=== PATIENT | female | born 1995 | race Caucasian/White ===

== ENCOUNTER 2017-10-13 12:38 | Inpatient (IN) | payer MEDICAID ==
[2017-10-13] MEDS: LACTATED RINGER'S 1,000 ML IV ×3 (13:17→23:25)
[2017-10-13 13:21] LABS: ADD MAN DIFF? NO
[2017-10-13 13:23] LABS: ABNORMAL IP MESSAGE 1; BASOPHILS % 0.2 % (0.0-2.0); HEMATOCRIT 31.9 % (37.0-47.0); HEMOGLOBIN 10.7 g/dl (12.0-16.0); LYMPHOCYTES # 0.4 10^3/ul (0.8-2.9); LYMPHOCYTES % 4.4 % (15.0-51.0); MEAN CORPUSCULAR HEMOGLOBIN 30.1 pg (29.0-33.0); MEAN CORPUSCULAR HGB CONC 33.5 g/dl (32.0-37.0); MEAN CORPUSCULAR VOLUME 89.6 fl (82.0-101.0); MONOCYTE # 0.8 10^3/ul (0.3-0.9); MONOCYTES % 9.4 % (0.0-11.0); NEUTROPHIL # 7.3 10^3/ul (1.6-7.5); NUCLEATED RED BLOOD CELLS # 0.1 10^3/ul (0.0-0.0); NUCLEATED RED BLOOD CELLS% 0.7 /100WBC (0.0-0.0); PLATELET COUNT 205 10^3/UL (140-415); RED BLOOD COUNT 3.56 10^6/ul (4.20-5.40); RED CELL DISTRIBUTION WIDTH 13.6 % (11.5-14.5)
[2017-10-13 13:23] LABS: WHITE BLOOD COUNT 8.7 10^3/ul (4.8-10.8)
[2017-10-13 13:37] LABS: POSITIVE DIFF @See below
[2017-10-13 13:40] LABS: ALANINE AMINOTRANSFERASE 31 IU/L (13-69); ALBUMIN 3.2 g/dl (3.3-4.9); ALBUMIN/GLOBULIN RATIO 1.03; ALKALINE PHOSPHATASE 149 IU/L (42-121); ANION GAP 12 (8-16); ASPARTATE AMINO TRANSFERASE 24 IU/L (15-46); BILIRUBIN,INDIRECT 0.3 mg/dl (0-1.1); BILIRUBIN,TOTAL 0.3 mg/dl (0.2-1.3); BLOOD UREA NITROGEN 3 mg/dl (7-20); CALCIUM 8.1 mg/dl (8.4-10.2); CARBON DIOXIDE 18 mmol/L (21-31); CHLORIDE 109 mmol/L (97-110); CREATININE 0.57 mg/dl (0.44-1.00); GLUCOSE 84 mg/dl (70-220); POTASSIUM 3.5 mmol/L (3.5-5.1); SODIUM 135 mmol/L (135-144); TOTAL PROTEIN 6.3 g/dl (6.1-8.1)
[2017-10-13] MEDS: CEFAZOLIN 2 GM/50 ML (PMX) 50 ML IVPB (16:34)
[2017-10-13 17:54] LABS: ADD UMIC YES; UR ASCORBIC ACID NEGATIVE (NEGATIVE); UR BACTERIA FEW /HPF (NONE SEEN); UR BILIRUBIN (Dip) NEGATIVE (NEGATIVE); UR BLOOD (Dip) 1+ mg/dL (NEGATIVE); UR CLARITY SLIGHTLY CLOUDY (CLEAR); UR COLOR YELLOW (YELLOW); UR GLUCOSE (Dip) NEGATIVE (NEGATIVE); UR KETONES (Dip) 2+ mg/dL (NEGATIVE); UR LEUKOCYTE ESTERASE (Dip) 1+ Leu/ul (NEGATIVE); UR MUCUS FEW /HPF (NONE SEEN); UR NITRITE (Dip) NEGATIVE (NEGATIVE); UR RBC 2 /HPF (0-5); UR SPECIFIC GRAVITY (Dip) 1.021 (1.003-1.030); UR SQUAMOUS EPITHELIAL CELL FEW /HPF (FEW); UR TOTAL PROTEIN (Dip) NEGATIVE (NEGATIVE); UR UROBILINOGEN (Dip) 1+ mg/dL (NEGATIVE); UR WBC 3 /HPF (0-5)
[2017-10-13] MEDS: ACETAMINOPHEN 325 MG TAB PO (20:11)
[2017-10-13] MEDS: CEPASTAT LOZENGE MT (21:22)
[2017-10-14] MEDS: LACTATED RINGER'S 1,000 ML IV (07:42)
[2017-10-14] MEDS: ACETAMINOPHEN 325 MG TAB PO (12:30)
[2017-10-14] MEDS: CEPASTAT LOZENGE MT (12:30)
[2017-10-14] MEDS: SALINE 0.65% 45 ML NAS SPRAY NASAL (13:42)
[2017-10-14] MEDS ORDERED: AZITHROMYCIN 250 MG TAB PO (14:00)
[2017-10-14] MEDS ORDERED: OSELTAMIVIR 75 MG CAP PO (14:00)
== END 2017-10-14 14:15 | disposition home or self-care (01) | DRG 781 ==
LOC: OBT 12:38 → L-D 12:38 → OBT 16:00 → L-D 16:00
DX: O98.513 Other viral diseases complicating pregnancy, third trimester (principal); J00 Acute nasopharyngitis [common cold]; Z3A.31 31 weeks gestation of pregnancy
CPT/HCPCS: 36415; 76817; 76818; 80053; 81001; 85025; 96360

== ENCOUNTER 2017-11-14 07:57 | Outpatient (CLI) | payer MEDICAID | END 2017-11-14 11:00 | disposition home or self-care (01) | LOC: OBT 07:57 → L-D 07:57 → OBT 11:00 | DX: O62.9 Abnormality of forces of labor, unspecified (principal); O34.219 Maternal care for unspecified type scar from previous cesarean delivery; Z3A.36 36 weeks gestation of pregnancy | CPT/HCPCS: 76818 ==

== ENCOUNTER 2017-12-02 10:32 | Inpatient (IN) | payer MEDICAID ==
[~2017-12-02 10:32] MED LIST: ACETAMINOPHEN 1000MG/100ML IV 100 ML; CEFAZOLIN 1 GM INJ; DEXAMETHASONE 4 MG/ML 1 ML INJ; FAMOTIDINE 20 MG INJ; FENTAnyl 50 MCG/ML VIAL; LIDOCAINE 2% (SDV) 5 ML INJ; MIDAZOLAM 1 MG/ML 2 ML INJ; ONDANSETRON 4 MG INJ; PHENYLephrine (100 MCG/ML) 5ML SYG; PROPOFOL 20 ML; ROCURONIUM 50 MG INJ; SUCCINYLCHOLINE CHLORIDE 100 MG/5 ML SYG IV; SUGAMMADEX SODIUM 200 MG/2 ML VIAL IV; morphine SULFATE/PF (10 MG/10 ML) INJ
[2017-12-02] MEDS ORDERED: MISOPROSTOL 200 MCG TAB PR (11:00)
[2017-12-02] MEDS ORDERED: CARBOPROST 250 MCG INJ IM (11:00)
[2017-12-02] MEDS ORDERED: IBUPROFEN 600 MG TAB PO (11:00)
[2017-12-02] MEDS ORDERED: LIDOCAINE 1% (MPF) 30 ML INJ INJ (11:00)
[2017-12-02] MEDS ORDERED: HYDROCODONE/APAP (5/325) TAB PO (11:00)
[2017-12-02] MEDS ORDERED: OXYTOCIN 30 UNITS/LR 500 ML IV (11:00)
[2017-12-02] MEDS ORDERED: METHYLERGONOVINE 0.2 MG INJ IM (11:00)
[2017-12-02 11:34] LABS: ADD MAN DIFF? NO
[2017-12-02 11:38] LABS: BASOPHILS % 0.2 % (0.0-2.0); EOSINOPHILS % 0.3 % (0.0-7.0); HEMATOCRIT 35.3 % (37.0-47.0); HEMOGLOBIN 11.7 g/dl (12.0-16.0); LYMPHOCYTES # 2.2 10^3/ul (0.8-2.9); LYMPHOCYTES % 21.4 % (15.0-51.0); MEAN CORPUSCULAR HEMOGLOBIN 27.4 pg (29.0-33.0); MEAN CORPUSCULAR HGB CONC 33.1 g/dl (32.0-37.0); MEAN CORPUSCULAR VOLUME 82.7 fl (82.0-101.0); MEAN PLATELET VOLUME 11.6 fl (7.4-10.4); MONOCYTE # 0.6 10^3/ul (0.3-0.9); MONOCYTES % 6.1 % (0.0-11.0); NEUTROPHIL # 7.4 10^3/ul (1.6-7.5); NUCLEATED RED BLOOD CELLS% 0.2 /100WBC (0.0-0.0); PLATELET COUNT 280 10^3/UL (140-415); RED BLOOD COUNT 4.27 10^6/ul (4.20-5.40); RED CELL DISTRIBUTION WIDTH 16.2 % (11.5-14.5)
[2017-12-02 11:38] LABS: WHITE BLOOD COUNT 10.4 10^3/ul (4.8-10.8)
[2017-12-02 12:07] LABS: INR 0.93; PROTIME 12.6 Sec (11.9-14.9)
[2017-12-02 12:08] LABS: PARTIAL THROMBOPLASTIN TIME 26.4 Sec (25.0-35.0)
[2017-12-02] MEDS: LACTATED RINGER'S 1,000 ML IV ×3 (12:09→22:13)
[2017-12-02] MEDS: DINOPROSTONE 10 MG VAG SUPP VAG (12:11)
[2017-12-02 12:30] LABS: HEPATITIS B SURFACE ANTIGEN NEGATIVE (NEGATIVE)
[2017-12-02 17:31] LABS: RAPID PLASMA REAGIN NONREACTIVE (NR)
[2017-12-02] MEDS: BUTORPHANOL 2 MG INJ IV (22:43)
[2017-12-03] MEDS: BUTORPHANOL 2 MG INJ IV (03:22)
[2017-12-03] MEDS: LACTATED RINGER'S 1,000 ML IV ×4 (05:53→18:23)
[2017-12-03] MEDS ORDERED: ONDANSETRON 4 MG INJ IV ×2 (06:00→10:00)
[2017-12-03] MEDS ORDERED: AMPICILLIN 2 GM/NS (PMX) 100 ML IVPB (06:30)
[2017-12-03] MEDS ORDERED: OXYTOCIN 30 UNITS/LR 500 ML IV ×2 (07:00→22:00)
[2017-12-03] MEDS ORDERED: FENTAnyl 2MCG/ML-ROPIV 0.2% 100 ML (08:24)
[2017-12-03] MEDS ORDERED: MINERAL OIL LIGHT 10 ML VIAL TOP (09:30)
[2017-12-03] MEDS ORDERED: NALOXONE (0.4 MG/ML) INJ IV (10:00)
[2017-12-03] MEDS ORDERED: DIPHENHYDRAMINE 50 MG INJ IV (10:00)
[2017-12-03] MEDS ORDERED: TRIMETHOBENZAMIDE 100 MG/ML VIAL IM (10:00)
[2017-12-03] MEDS: FENTAnyl 2MCG/ML-ROPIV 0.2% 100 ML BAG EPI ×2 (10:06→15:52)
[2017-12-03] MEDS ORDERED: AMPICILLIN 1 GM/NS (PMX) 50 ML IVPB (10:30)
[2017-12-03] MEDS: OXYTOCIN 30 UNITS/LR 500 ML IV ×3 (11:08→19:38)
[2017-12-03] MEDS ORDERED: FENTAnyl 50 MCG/ML VIAL (19:06)
[2017-12-03] MEDS ORDERED: LACTATED RINGER'S 1,000 ML IV* (21:54)
[2017-12-03] MEDS ORDERED: HYDROCODONE/APAP (5/325) TAB PO (22:00)
[2017-12-03] MEDS ORDERED: ZOLPIDEM 5 MG TAB PO (22:00)
[2017-12-03] MEDS ORDERED: MISOPROSTOL 200 MCG TAB PR (22:00)
[2017-12-03] MEDS ORDERED: METHYLERGONOVINE 0.2 MG INJ IM (22:00)
[2017-12-03] MEDS ORDERED: CARBOPROST 250 MCG INJ IM (22:00)
[2017-12-03] MEDS ORDERED: DIBUCAINE 1% 30 GM OINT PR (22:00)
[2017-12-03] MEDS: WITCH HAZEL/GLYCERIN PAD PR (22:13)
[2017-12-03] MEDS: LANOLIN 7 GM TUBE TOP (22:13)
[2017-12-03] MEDS: HYDROCODONE/APAP (5/325) TAB PO (22:13)
[2017-12-03] MEDS: BENZOCAINE 20% 56 ML SPRAY TOP (22:13)
[2017-12-03] MEDS: IBUPROFEN 600 MG TAB PO (23:29)
[2017-12-03] MEDS: CEPHALEXIN 500 MG CAP PO (23:29)
[2017-12-04] MEDS: CEPHALEXIN 500 MG CAP PO ×3 (05:47→17:30)
[2017-12-04] MEDS: IBUPROFEN 600 MG TAB PO ×3 (05:47→17:30)
[2017-12-04 08:00] LABS: ADD MAN DIFF? NO
[2017-12-04 08:06] LABS: BASOPHILS % 0.2 % (0.0-2.0); EOSINOPHILS % 0.3 % (0.0-7.0); HEMATOCRIT 28.4 % (37.0-47.0); HEMOGLOBIN 9.4 g/dl (12.0-16.0); LYMPHOCYTES # 2.3 10^3/ul (0.8-2.9); LYMPHOCYTES % 15.7 % (15.0-51.0); MEAN CORPUSCULAR HEMOGLOBIN 27.5 pg (29.0-33.0); MEAN CORPUSCULAR HGB CONC 33.1 g/dl (32.0-37.0); MEAN PLATELET VOLUME 11.8 fl (7.4-10.4); MONOCYTE # 1.1 10^3/ul (0.3-0.9); MONOCYTES % 7.6 % (0.0-11.0); NEUTROPHIL # 10.9 10^3/ul (1.6-7.5); NEUTROPHILS % 75.2 % (39.0-77.0); PLATELET COUNT 204 10^3/UL (140-415); RED BLOOD COUNT 3.42 10^6/ul (4.20-5.40); RED CELL DISTRIBUTION WIDTH 16.2 % (11.5-14.5)
[2017-12-04 08:06] LABS: WHITE BLOOD COUNT 14.5 10^3/ul (4.8-10.8)
[2017-12-04] MEDS: HYDROCODONE/APAP (5/325) TAB PO (08:07)
[2017-12-04] MEDS: SENNA/DOCUSATE NA (8.6MG/50MG) TAB PO ×2 (09:39→21:50)
[2017-12-04] MEDS: MAGNESIUM HYDROXIDE 30ML CUP PO ×2 (09:39→21:50)
[2017-12-05] MEDS: IBUPROFEN 600 MG TAB PO ×4 (00:38→18:03)
[2017-12-05] MEDS: CEPHALEXIN 500 MG CAP PO ×4 (00:38→18:03)
[2017-12-05] MEDS: MEASLES,MUMPS,RUBELLA VACCINE INJ SC* (09:00)
[2017-12-05] MEDS: SENNA/DOCUSATE NA (8.6MG/50MG) TAB PO (09:00)
[2017-12-05] MEDS: VARICELLA VACCINE LIVE/PF 1,350 UNIT/0.5 ML ML SC* (09:00)
[2017-12-05] MEDS: MAGNESIUM HYDROXIDE 30ML CUP PO (09:00)
[2017-12-05] MEDS: DIPHTH/TET/ACEL PERTUSS (ADULT) 0.5 ML VIAL IM* (09:00)
[2017-12-05 10:15] LABS: ADD MAN DIFF? NO
[2017-12-05 10:19] LABS: BASOPHILS % 0.3 % (0.0-2.0); EOSINOPHILS # 0.1 10^3/ul (0.0-0.5); EOSINOPHILS % 1.1 % (0.0-7.0); HEMATOCRIT 31.9 % (37.0-47.0); HEMOGLOBIN 9.9 g/dl (12.0-16.0); LYMPHOCYTES # 2.3 10^3/ul (0.8-2.9); LYMPHOCYTES % 19.5 % (15.0-51.0); MEAN CORPUSCULAR VOLUME 86.9 fl (82.0-101.0); MEAN PLATELET VOLUME 11.1 fl (7.4-10.4); MONOCYTE # 0.6 10^3/ul (0.3-0.9); MONOCYTES % 4.7 % (0.0-11.0); NEUTROPHIL # 8.8 10^3/ul (1.6-7.5); NEUTROPHILS % 73.6 % (39.0-77.0); PLATELET COUNT 244 10^3/UL (140-415); RED BLOOD COUNT 3.67 10^6/ul (4.20-5.40); RED CELL DISTRIBUTION WIDTH 16.3 % (11.5-14.5)
== END 2017-12-05 19:05 | disposition home or self-care (01) | DRG 775 ==
LOC: L-D 10:32 → PP1 12-03 21:39
PROVIDERS: Obstetrics & Gynecology
PROC: 3E0P7VZ Introduction of Hormone into Female Reproductive, Via Natural or Artificial Opening (ICD-10-PCS; principal; 2017-12-03)
PROC: 10E0XZZ Delivery of Products of Conception, External Approach (ICD-10-PCS; 2017-12-03)
PROC: 3E033VJ Introduction of Other Hormone into Peripheral Vein, Percutaneous Approach (ICD-10-PCS; 2017-12-03)
PROC: 0HQ9XZZ Repair Perineum Skin, External Approach (ICD-10-PCS; 2017-12-03)
DX: O36.63X0 Maternal care for excessive fetal growth, third trimester, not applicable or unspecified (principal); Z37.0 Single live birth; Z3A.39 39 weeks gestation of pregnancy
CPT/HCPCS: 76815; 85025; 85610; 85730; 86592; 86900; 86901; 87340